=== PATIENT | male | born 1970 | race Caucasian/White ===

== ENCOUNTER 2018-11-02 10:27 | Observation (INO) | payer OTHER, SELFPAY ==
[2018-11-02] VITALS (18 sets, daily range): BP systolic 95–130; BP diastolic 63–89; PULSE 78–102; RESP 14–24; TEMP 36.4–38.4; O2SAT 91–98; BMI 28.8
--- NOTE | 2018-11-02 | PATH_ITS ---
[facility] Accession Number: [id number] . 01 Material submitted: . gallbladder - GALLBLADDER AND CONTENTS . 02 Diagnosis: Gallbladder And Contents, Cholecystectomy: Cholelithiasis. Markedly active chronic cholecystitis with transmural abscess (microscopic perforation). No evidence of neoplasm. I/11/04/2018 . 02 Electronically signed: . Joey Bolton MD, PhD, Pathologist NPI- [id number] . 01 Gross description: . Received in formalin, labeled gallbladder + contents, is an opened gallbladder (length-6.9 cm, diameter-3.6 cm) with anderson-horner smooth shiny serosa and a patent cystic duct. No lymph nodes are identified. The mucosa is brown-green, smooth and flat. The wall is up to 0.2 cm thick. No nodules, masses or lesions are identified. The contents are also submitted and consist of anderson-brown mucoid material containing multiple green gritty friable calculi (2.0 x 1.5 x 0.7 cm in aggregate). Section code: (A1) cystic duct resection margin and two serial sections from the body; (A2) two longitudinal sections from the fundus. ([id number]) /MRV . 02 Pathologist provided ICD-10: K80.60, K81.2 . 02 CPT . 513863 Performed at: 01 [facility] [address] [facility], [place], [place] [id number] MD Garrick Castellanos MD Phone: [phone] Performed at: 02 [facility] [address] [place], [place] [id number] MD Isha Silverman MD Phone: [phone]
--- NOTE | 2018-11-02 10:34 | ED.ABDPAIN ---
HPI - Abdominal Pain General Chief Complaint: Abdominal Pain Stated Complaint: stomach pain Time Seen by Provider: 11/02/18 10:28 Source: patient and family () Mode of arrival: ambulatory Limitations: no limitations History of Present Illness HPI narrative: This is a 48-year-old male comes to the emergency department with complaint of abdominal pain. Patient states it started last night. He states it started after he ate dinner. He states that is been pretty much constant. Movement does seem to make it worse particularly bending side to side. Lying flat does not take it away but it is not as uncomfortable. Patient states that does not radiate anywhere, does not go to his chest, back or lower abdomen. He describes it as being sort of epigastric and supraumbilical. Patient states he has thrown up 4 times overnight. He has not had fevers but felt a little chilled or clammy. He has had normal bowel movements. He has not had any black or blood in his bowel movements or in his vomit. He has had normal urination. He denies any skin changes. Patient denies any other past medical history, he does not take medications regularly, he has had surgery which included a Vega fundoplication for GERD about 15 years ago. He does drink alcohol, 2-4 drinks daily 5 days of 7 days. Denies tobacco, denies illicit. He was visiting [facility] and so they were not able to come to the emergency department last night. He tried Kerry-Edmond but has not tried any other OTC medications. Related Data Home Medications Medication Instructions Recorded Confirmed No Known Home Medications 11/02/18 11/02/18 Allergies Allergy/AdvReac Type Severity Reaction Status Date / Time No Known Drug Allergies Allergy Verified 11/02/18 15:14 Review of Systems Review of Systems ROS Unobtainable: All systems reviewed & are unremarkable except as noted in HPI and below Constitutional Reports chills, Denies fever(s), Denies lethargy and Denies weakness Cardiovascular Denies chest pain, Denies irregular heart rhythm, Denies lightheadedness, Denies palpitations, Denies dyspnea, Denies dyspnea on exertion and Denies orthopnea Respiratory Denies chest congestion, Denies cough, Denies dyspnea and Denies dyspnea on exertion Gastrointestinal Gastrointestinal: Reports abdominal pain, Denies melena, Denies hematochezia, Denies change in bowel habits, Denies change in stool character, Denies constipation, Denies diarrhea, Reports nausea, Reports vomiting (x4) and Denies hematemesis Genitourinary Denies hematuria, Denies flank pain, Denies urinary frequency, Denies urinary hesitancy, Denies urinary incontinence and Denies urinary urgency Musculoskeletal Denies back pain Integumentary/Breasts Denies rash and Denies unusual bruising Neurologic Denies weakness Endocrine Denies palpitations [facility] Surgical History History of Vega fundoplication (Chronic) Social History (Updated 11/02/18 @ 10:41 by Henrietta Streeter DO) Smoking Status: Never smoker alcohol intake: current substance use type: does not use Social History (Updated 11/02/18 @ 10:41 by Henrietta Streeter DO) household members: significant other and family Smoking Status: Never smoker alcohol intake: current substance use type: does not use Exam Narrative Exam Narrative: GENERAL: Alert and oriented x three, well-nourished, well-appearing male in moderate distress. HEENT: Head normocephalic, atraumatic, EOMI, pupils reactive, face symmetric, moist mucous membranes NECK: Supple, full range of motion CARDIOVASCULAR: Regular rate and rhythm without murmurs, rubs or gallops. RESPIRATORY: Breath sounds equal bilaterally, no wheezes rales or rhonchi. ABDOMEN: Soft, some mild diffuse tenderness, greater in right upper and left upper quadrant. Hypoactive bowel sounds all 4 quadrants. No guarding or rebound, rigidity, no mass. No rash, no skin changes. : No CVA tenderness EXTREMITIES: Normal range of motion, no clubbing or edema. Neurovascularly intact NEUROLOGICAL: Cranial nerves II through XII grossly intact. Moving all extremities SKIN: Warm, dry, no petechiae, no rashes or lesions. Initial Vital Signs Initial Vital Signs: Vital Signs Temperature 99.2 F 11/02/18 10:32 Pulse Rate 102 H 11/02/18 10:32 Respiratory Rate 18 11/02/18 10:32 Blood Pressure 130/89 11/02/18 10:32 Pulse Oximetry 96 11/02/18 10:32 Course Orders Ordered: ED Orders 11/02/18 10:34 US abdomen complete Stat 11/02/18 10:35 XR acute abdomen series Stat 11/02/18 10:41 Complete Blood Count AUTO DIFF Stat Comprehensive Metabolic Panel Stat Lipase Stat Troponin & CK Cardiac Panel Stat 11/02/18 14:22 Education, smoking cessation ONGOING Acetaminophen (Tylenol) 650 mg PO Q6HR PRN PRN Reason: As Needed for Fever/Mild Pain Docusate Sodium (Colace) 100 mg PO BID PRN PRN Reason: Constipation Hydromorphone HCl (Dilaudid) 0.5 mg IV Q4HR PRN PRN Reason: Pain, Moderate (4-6) Sodium Chloride (Normal Saline 0.9%) 1,000 mls @ 100 mls/hr IV CONT GERARDO Last Admin: 11/02/18 17:55 Dose: 100 mls/hr Naloxone HCl (Narcan) 0.2 mg IV Q2MIN PRN PRN Reason: Opiate Reversal Oxycodone/Acetaminophen (Percocet 5/325) 1 tab PO Q4HR PRN PRN Reason: Pain, Moderate (4-6) Discontinued Medications Acetaminophen (Tylenol) 325 mg PO NOW PRN PRN Reason: Pain, Mild (1-3) Bupivacaine HCl/Epinephrine Bitart (Sensorcaine 0.25% W/ Epi (Pf)) 30 ml INJ NOW ONE Stop: 11/02/18 16:14 Last Admin: 11/02/18 16:13 Dose: 20 ml Fentanyl (Sublimaze) 50 mcg IV Q5MIN PRN PRN Reason: Pain, Moderate (4-6) Hydromorphone HCl (Dilaudid) 0.5 mg IV Q4H PRN PRN Reason: Pain, Severe (7-10) Hydromorphone HCl (Dilaudid) 0.5 mg IV Q5MIN PRN PRN Reason: Pain, Moderate (4-6) Sodium Chloride (Normal Saline 0.9%) 1,000 mls @ 1,000 mls/hr IV BOLUS ONE Stop: 11/02/18 11:33 Last Infusion: 11/02/18 11:44 Dose: 0 mls/hr Admin: 11/02/18 10:44 Dose: 1,000 mls/hr Sodium Chloride (Normal Saline 0.9%) 1,000 mls @ 150 mls/hr IV BOLUS ONE Stop: 11/02/18 18:43 Last Infusion: 11/02/18 13:22 Dose: 150 mls/hr Infusion: 11/02/18 13:08 Dose: 150 mls/hr Admin: 11/02/18 12:27 Dose: 150 mls/hr Piperacillin/Tazobactam/Dextrose (Zosyn) 3.375 gm in 50 mls @ 100 mls/hr IV NOW ONE Stop: 11/02/18 12:45 Last Infusion: 11/02/18 13:08 Dose: 0 mls/hr Admin: 11/02/18 12:29 Dose: 100 mls/hr Lactated Ringer's (Lactated Ringers) 1,000 mls @ 100 mls/hr IV CONT GERARDO Last Admin: 11/02/18 15:17 Dose: 100 mls/hr Lactated Ringer's (Lactated Ringers) 1,000 mls @ 42 mls/hr IV CONT GERARDO Last Admin: 11/02/18 18:28 Dose: Not Given Acetaminophen (Ofirmev) 1,000 mg in 100 mls @ 400 mls/hr IV NOW ONE Stop: 11/02/18 16:53 Last Admin: 11/02/18 16:40 Dose: 400 mls/hr Ketorolac Tromethamine (Toradol) 30 mg IV NOW ONE Stop: 11/02/18 10:35 Last Admin: 11/02/18 10:44 Dose: 30 mg Metoclopramide HCl (Reglan) 10 mg IV NOW PRN PRN Reason: Nausea And Vomiting Morphine Sulfate (Morphine) 2 mg IV NOW ONE Stop: 11/02/18 12:07 Last Admin: 11/02/18 12:08 Dose: 2 mg Ondansetron HCl (Zofran) 4 mg IV NOW ONE Stop: 11/02/18 10:35 Last Admin: 11/02/18 10:44 Dose: 4 mg Ondansetron HCl (Zofran) 4 mg IV Q4HR PRN PRN Reason: Nausea And Vomiting Ondansetron HCl (Zofran) 4 mg IV NOW PRN PRN Reason: Nausea And Vomiting Oxycodone HCl (Percolone) 5 mg PO Q30MIN PRN PRN Reason: Mild or moderate pain Pantoprazole Sodium (Protonix) 40 mg IV NOW ONE Stop: 11/02/18 10:35 Last Admin: 11/02/18 10:44 Dose: 40 mg Vital Signs - 8 hr 11/02/18 11:28 11/02/18 12:32 11/02/18 15:22 Temperature 101.1 F H Pulse Rate 78 97 H 90 Respiratory Rate 16 16 24 Blood Pressure 109/69 Blood Pressure [Left Arm] 119/82 110/79 Pulse Oximetry 98 97 97 11/02/18 16:58 11/02/18 17:03 11/02/18 17:08 Temperature 98.1 F Pulse Rate 99 H 96 H 96 H Respiratory Rate 18 22 16 Blood Pressure 107/80 103/75 105/76 Blood Pressure [Left Arm] Pulse Oximetry 92 94 94 11/02/18 17:13 11/02/18 17:18 11/02/18 17:23 Temperature Pulse Rate 93 H 90 91 H Respiratory Rate 14 17 19 Blood Pressure 99/70 95/67 95/70 Blood Pressure [Left Arm] Pulse Oximetry 94 93 94 11/02/18 17:27 11/02/18 17:33 11/02/18 17:38 Temperature 99.4 F Pulse Rate 90 93 H 93 H Respiratory Rate 19 15 22 Blood Pressure 102/72 97/64 101/72 Blood Pressure [Left Arm] Pulse Oximetry 93 94 92 11/02/18 17:50 Temperature 98.1 F Pulse Rate 87 Respiratory Rate 18 Blood Pressure 110/67 Blood Pressure [Left Arm] Pulse Oximetry 92 MDM - Abdominal Pain Lab Data Attestation: I reviewed the patient's lab results. Result diagrams: 11/02/18 10:41 11/02/18 10:41 Lab Results 11/02/18 11/02/18 Range/Units 10:41 10:41 WBC 15.9 H (4.5-11.0) X10^3/uL RBC 4.69 (4.5-5.9) X10^6/uL Hgb 15.1 (13.5-17.5) g/dL Hct 42.5 (41-53) % MCV 90.7 (80-100) fL MCH 32.1 (26-34) PG MCHC 35.4 (30-36) % RDW 12.9 (11.6-14.8) % Plt Count 184 (150-400) X10^3/uL Neut % (Auto) 90.6 H (50-75) % Lymph % (Auto) 2.7 L (25-40) % Pen[place]ton % (Auto) 6.5 (3-14) % Eos % (Auto) 0.0 L (2-4) % Baso % (Auto) 0.2 (0-2) % Neut # (Auto) 04127 H (6672-3967) /uL Lymph # (Auto) 400 L (6770-3555) /uL Pennington # (Auto) 1000 H (0-900) /uL Eos # (Auto) 0 (0-450) /uL Baso # (Auto) 0 (0-100) /uL Sodium 140 (137-145) mmol/L Potassium 4.0 (3.4-5.1) mmol/L Chloride 102 (98-107) mmol/L Carbon Dioxide 25 (22-32) mmol/L BUN 16 (9-20) mg/dL Creatinine 0.70 (0.66-1.25) mg/dL Estimated GFR > 60.0 (>60) mL/min BUN/Creatinine Ratio 22.9 H (6-22) Glucose 145 H (70-100) mg/dL Calcium 9.5 (8.4-10.2) mg/dL Total Bilirubin 1.0 (0.2-1.3) mg/dL AST 31 (17-59) IU/L ALT 33 (21-72) IU/L Alkaline Phosphatase 63 (38-126) U/L Total Creatine Kinase 178 H (55-170) U/L CK-MB (CK-2) 1.03 (<2.37) ng/mL CK-MB (CK-2) Rel Index 0.6 L (1.5-5.0) % Troponin I < 0.012 (0.01-0.034) ng/mL Total Protein 8.0 (6.3-8.2) g/dL Albumin 4.8 (3.5-5.0) g/dL Globulin 3.2 (1.7-4.1) g/dL Albumin/Globulin Ratio 1.5 (1.0-2.8) Lipase 42 (23-300) U/L Imaging Data Abdominal x-ray: Radiologist's impression: Pancho De Los Santos 48 M [address] [address] XRay Report Signed Patient: Pancho De Los Santos#: [id number] : 1970Acct:[id number] Age/Sex: 48 / MDate of Service: 11/02/18 Loc: ED Accession Number: [id number] Procedure: XR acute abdomen series Ordering Provider: Henrietta Streeter D.O. PROCEDURE: XR ACUTE ABDOMEN SERIES INDICATIONS: epigastric/abdominal pain TECHNIQUE: One view chest and two views of the abdomen were acquired. COMPARISON: None. FINDINGS: Surgical changes and devices: None. Chest: Lungs are clear. Heart size is normal. No pleural effusions. No pneumoperitoneum. Abdomen: Bowel gas pattern is normal. Mild fecal stasis in the colon is seen. No suspicious calcifications. Visualized solid organ contours appear normal. Bones: No suspicious bony lesions. IMPRESSION: No evidence of bowel structure or gross free air. No acute cardiopulmonary pathology. Dictated by: Antony Fox M.D. on 11/02/2018 at 11:23 Approved by: Antony Fox M.D. on 11/02/2018 at 11:24 US - abdomen: Radiologist's impression: [place] [address] Ultrasound Report Signed Patient: Pancho De Los Santos [facility]#: [id number] : 1970Acct:[id number] Age/Sex: 48 / MDate of Service: 11/02/18 Loc: ED Accession Number: [id number] Procedure: US abdomen complete Ordering Provider: Henrietta Streeter D.O. PROCEDURE: US ABDOMEN COMPLETE INDICATIONS: EPIGASTRIC/SUPRAUMBILICAL PAIN TECHNIQUE: Real-time scanning was performed of the abdominal and retroperitoneal organs, with image documentation. COMPARISON: None. FINDINGS: Liver: Liver is mildly enlarged in size and measures 22.2 cm in length. Normal liver parenchymal echotexture is seen. Gallbladder: Multiple stones are seen in dependent portion of gallbladder lumen. Borderline gallbladder wall thickening is seen measures 3.5 mm in thickness. No pericholecystic fluid. No sonographic Anne's sign. Biliary ducts: Intrahepatic bile ducts are non-dilated. Extrahepatic bile duct caliber measures 5.2 mm. Normal is 6-7 mm or less in diameter, or 10 mm or less post-cholecystectomy. Pancreas: Visualized portions of the pancreas are sonographically normal. Spleen: Spleen is enlarged and measures 14 cm in length. No discrete splenic lesion is seen. Kidneys: Kidneys are normal in size and echotexture. Right kidney measures 11.1 cm long; left kidney measures 13.1 cm long. No hydronephrosis or nephrolithiasis. No solid masses. Aorta: Visualized aorta is normal in caliber at less than 3 cm. Iliacs: Proximal common iliac arteries are normal in caliber at less than 2.5 cm. IVC: Intrahepatic inferior vena cava is patent. Miscellaneous: No free abdominal fluid. No gross abnormality is seen in supraumbilical area. IMPRESSION: 1. Hepatosplenomegaly. No discrete hepatic or splenic lesion. 2. Cholelithiasis. No sonographic evidence of acute cholecystitis. No biliary ductal dilatation. Dictated by: Antony Fox M.D. on 11/02/2018 at 11:14 Approved by: Antony Fox M.D. on 11/02/2018 at 11:16 ECG Data Attestation: I personally reviewed and interpreted this ECG as follows: Interpretation: Sinus tachycardia nose ST elevation or depression. Rate of 103 P are 172 QRS of 108 QTC of 422. Q-wave in 3 and AVF. MDM Narrative Medical decision making narrative: Recheck after medications and patient is feeling improved with a pain a 5/10. He defers any additional pain medications. Patient has gallstones, thickening of the gallbladder wall. No sludge or fluid but patient is tender on exam he also has an elevated white count. He has been afebrile. Patient's LFTs, creatinine and electrolytes are normal. EKG and troponin were obtained, no acute findings other than some sinus tachycardia. I spoke with Dr. Holden, who accepts asked for the patient to be admitted under her name. Asked that we start antibiotics. Discussed a plan for Zosyn. Discussed with patient he is aware of the plan. Discharge Plan Departure Patient Disposition: Admitted as Observation Clinical Impression: Cholelithiasis, Abdominal pain, Acute cholecystitis Discharge Date/Time: 11/02/18 13:21 Interventions: ED Discharge Assessment Last Done: 11/02/18 13:20 Admit Date/Time: 11/02/18 12:32 Admit Provider: Vidhya Holden
--- NOTE | 2018-11-02 10:40 | ED_ITS ---
HPI - Abdominal Pain General Chief Complaint: Abdominal Pain Stated Complaint: stomach pain Time Seen by Provider: 11/02/18 10:28 Source: patient and family () Mode of arrival: ambulatory Limitations: no limitations History of Present Illness HPI narrative: This is a 48-year-old male comes to the emergency department with complaint of abdominal pain. Patient states it started last night. He states it started after he ate dinner. He states that is been pretty much constant. Movement does seem to make it worse particularly bending side to side. Lying flat does not take it away but it is not as uncomfortable. Patient states that does not radiate anywhere, does not go to his chest, back or lower abdomen. He describes it as being sort of epigastric and supraumbilical. Patient states he has thrown up 4 times overnight. He has not had fevers but felt a little chilled or clammy. He has had normal bowel movements. He has not had any black or blood in his bowel movements or in his vomit. He has had normal urination. He denies any skin changes. Patient denies any other past medical history, he does not take medications regularly, he has had surgery which included a Vega fundoplication for GERD about 15 years ago. He does drink alcohol, 2-4 drinks daily 5 days of 7 days. Denies tobacco, denies illicit. He was visiting [facility] and so they were not able to come to the emergency department last night. He tried Kerry-Pana but has not tried any other OTC medications. Related Data Home Medications Medication Instructions Recorded Confirmed No Known Home Medications 11/02/18 11/02/18 Allergies Allergy/AdvReac Type Severity Reaction Status Date / Time No Known Drug Allergies Allergy Verified 11/02/18 15:14 Review of Systems Review of Systems ROS Unobtainable: All systems reviewed & are unremarkable except as noted in HPI and below Constitutional Reports chills, Denies fever(s), Denies lethargy and Denies weakness Cardiovascular Denies chest pain, Denies irregular heart rhythm, Denies lightheadedness, Denies palpitations, Denies dyspnea, Denies dyspnea on exertion and Denies orthopnea Respiratory Denies chest congestion, Denies cough, Denies dyspnea and Denies dyspnea on exertion Gastrointestinal Gastrointestinal: Reports abdominal pain, Denies melena, Denies hematochezia, Denies change in bowel habits, Denies change in stool character, Denies consti pation, Denies diarrhea, Reports nausea, Reports vomiting (x4) and Denies hematemesis Genitourinary Denies hematuria, Denies flank pain, Denies urinary frequency, Denies urinary hesitancy, Denies urinary incontinence and Denies urinary urgency Musculoskeletal Denies back pain Integumentary/Breasts Denies rash and Denies unusual bruising Neurologic Denies weakness Endocrine Denies palpitations [facility] Surgical History History of Vega fundoplication (Chronic) Social History (Updated 11/02/18 @ 10:41 by Henrietta Streeter DO) Smoking Status: Never smoker alcohol intake: current substance use type: does not use Social History (Updated 11/02/18 @ 10:41 by Henrietta Streeter DO) household members: significant other and family Smoking Status: Never smoker alcohol intake: current substance use type: does not use Exam Narrative Exam Narrative: GENERAL: Alert and oriented x three, well-nourished, well- appearing male in moderate distress. HEENT: Head normocephalic, atraumatic, EOMI, pupils reactive, face symmetric, moist mucous membranes NECK: Supple, full range of motion CARDIOVASCULAR: Regular rate and rhythm without murmurs, rubs or gallops. RESPIRATORY: Breath sounds equal bilaterally, no wheezes rales or rhonchi. ABDOMEN: Soft, some mild diffuse tenderness, greater in right upper and left upper quadrant. Hypoactive bowel sounds all 4 quadrants. No guarding or rebound, rigidity, no mass. No rash, no skin changes. : No CVA tenderness EXTREMITIES: Normal range of motion, no clubbing or edema. Neurovascularly intact NEUROLOGICAL: Cranial nerves II through XII grossly intact. Moving all extremities SKIN: Warm, dry, no petechiae, no rashes or lesions. Initial Vital Signs Initial Vital Signs: Vital Signs Temperature 99.2 F 11/02/18 10:32 Pulse Rate 102 H 11/02/18 10:32 Respiratory Rate 18 11/02/18 10:32 Blood Pressure 130/89 11/02/18 10:32 Pulse Oximetry 96 11/02/18 10:32 Course Orders Ordered: ED Orders 11/02/18 10:34 US abdomen complete Stat 11/02/18 10:35 XR acute abdomen series Stat 11/02/18 10:41 Complete Blood Count AUTO DIFF Stat Comprehensive Metabolic Panel Stat Lipase Stat Troponin & CK Cardiac Panel Stat 11/02/18 14:22 Education, smoking cessation ONGOING Acetaminophen (Tylenol) 650 mg PO Q6HR PRN PRN Reason: As Needed for Fever/Mild Pain Docusate Sodium (Colace) 100 mg PO BID PRN PRN Reason: Constipation Hydromorphone HCl (Dilaudid) 0.5 mg IV Q4HR PRN PRN Reason: Pain, Moderate (4-6) Sodium Chloride (Normal Saline 0.9%) 1,000 mls @ 100 mls/hr IV CONT GERARDO Last Admin: 11/02/18 17:55 Dose: 100 mls/hr Naloxone HCl (Narcan) 0.2 mg IV Q2MIN PRN PRN Reason: Opiate Reversal Oxycodone/Acetaminophen (Percocet 5/325) 1 tab PO Q4HR PRN PRN Reason: Pain, Moderate (4-6) Discontinued Medications Acetaminophen (Tylenol) 325 mg PO NOW PRN PRN Reason: Pain, Mild (1-3) Bupivacaine HCl/Epinephrine Bitart (Sensorcaine 0.25% W/ Epi (Pf)) 30 ml INJ NOW ONE Stop: 11/02/18 16:14 Last Admin: 11/02/18 16:13 Dose: 20 ml Fentanyl (Sublimaze) 50 mcg IV Q5MIN PRN PRN Reason: Pain, Moderate (4-6) Hydromorphone HCl (Dilaudid) 0.5 mg IV Q4H PRN PRN Reason: Pain, Severe (7-10) Hydromorphone HCl (Dilaudid) 0.5 mg IV Q5MIN PRN PRN Reason: Pain, Moderate (4-6) Sodium Chloride (Normal Saline 0.9%) 1,000 mls @ 1,000 mls/hr IV BOLUS ONE Stop: 11/02/18 11:33 Last Infusion: 11/02/18 11:44 Dose: 0 mls/hr Admin: 11/02/18 10:44 Dose: 1,000 mls/hr Sodium Chloride (Normal Saline 0.9%) 1,000 mls @ 150 mls/hr IV BOLUS ONE Stop: 11/02/18 18:43 Last Infusion: 11/02/18 13:22 Dose: 150 mls/hr Infusion: 11/02/18 13:08 Dose: 150 mls/hr Admin: 11/02/18 12:27 Dose: 150 mls/hr Piperacillin/Tazobactam/Dextrose (Zosyn) 3.375 gm in 50 mls @ 100 mls/hr IV NOW ONE Stop: 11/02/18 12:45 Last Infusion: 11/02/18 13:08 Dose: 0 mls/hr Admin: 11/02/18 12:29 Dose: 100 mls/hr Lactated Ringer's (Lactated Ringers) 1,000 mls @ 100 mls/hr IV CONT GERARDO Last Admin: 11/02/18 15:17 Dose: 100 mls/hr Lactated Ringer's (Lactated Ringers) 1,000 mls @ 42 mls/hr IV CONT GERARDO Last Admin: 11/02/18 18:28 Dose: Not Given Acetaminophen (Ofirmev) 1,000 mg in 100 mls @ 400 mls/hr IV NOW ONE Stop: 11/02/18 16:53 Last Admin: 11/02/18 16:40 Dose: 400 mls/hr Ketorolac Tromethamine (Toradol) 30 mg IV NOW ONE Stop: 11/02/18 10:35 Last Admin: 11/02/18 10:44 Dose: 30 mg Metoclopramide HCl (Reglan) 10 mg IV NOW PRN PRN Reason: Nausea And Vomiting Morphine Sulfate (Morphine) 2 mg IV NOW ONE Stop: 11/02/18 12:07 Last Admin: 11/02/18 12:08 Dose: 2 mg Ondansetron HCl (Zofran) 4 mg IV NOW ONE Stop: 11/02/18 10:35 Last Admin: 11/02/18 10:44 Dose: 4 mg Ondansetron HCl (Zofran) 4 mg IV Q4HR PRN PRN Reason: Nausea And Vomiting Ondansetron HCl (Zofran) 4 mg IV NOW PRN PRN Reason: Nausea And Vomiting Oxycodone HCl (Percolone) 5 mg PO Q30MIN PRN PRN Reason: Mild or moderate pain Pantoprazole Sodium (Protonix) 40 mg IV NOW ONE Stop: 11/02/18 10:35 Last Admin: 11/02/18 10:44 Dose: 40 mg Vital Signs - 8 hr 11/02/18 11:28 11/02/18 12:32 11/02/18 15:22 Temperature 101.1 F H Pulse Rate 78 97 H 90 Respiratory Rate 16 16 24 Blood Pressure 109/69 Blood Pressure [Left Arm] 119/82 110/79 Pulse Oximetry 98 97 97 11/02/18 16:58 11/02/18 17:03 11/02/18 17:08 Temperature 98.1 F Pulse Rate 99 H 96 H 96 H Respiratory Rate 18 22 16 Blood Pressure 107/80 103/75 105/76 Blood Pressure [Left Arm] Pulse Oximetry 92 94 94 11/02/18 17:13 11/02/18 17:18 11/02/18 17:23 Temperature Pulse Rate 93 H 90 91 H Respiratory Rate 14 17 19 Blood Pressure 99/70 95/67 95/70 Blood Pressure [Left Arm] Pulse Oximetry 94 93 94 11/02/18 17:27 11/02/18 17:33 11/02/18 17:38 Temperature 99.4 F Pulse Rate 90 93 H 93 H Respiratory Rate 19 15 22 Blood Pressure 102/72 97/64 101/72 Blood Pressure [Left Arm] Pulse Oximetry 93 94 92 11/02/18 17:50 Temperature 98.1 F Pulse Rate 87 Respiratory Rate 18 Blood Pressure 110/67 Blood Pressure [Left Arm] Pulse Oximetry 92 MDM - Abdominal Pain Lab Data Attestation: I reviewed the patient's lab results. Result diagrams: 11/02/18 10:41 11/02/18 10:41 Lab Results 11/02/18 11/02/18 Range/Units 10:41 10:41 WBC 15.9 H (4.5-11.0) X10^3/uL RBC 4.69 (4.5-5.9) X10^6/uL Hgb 15.1 (13.5-17.5) g/dL Hct 42.5 (41-53) % MCV 90.7 (80-100) fL MCH 32.1 (26-34) PG MCHC 35.4 (30-36) % RDW 12.9 (11.6-14.8) % Plt Count 184 (150-400) X10^3/uL Neut % (Auto) 90.6 H (50-75) % Lymph % (Auto) 2.7 L (25-40) % [place] % (Auto) 6.5 (3-14) % Eos % (Auto) 0.0 L (2-4) % Baso % (Auto) 0.2 (0-2) % Neut # (Auto) 31250 H (6018-8941) /uL Lymph # (Auto) 400 L (7975-8643) /uL [place] # (Auto) 1000 H (0-900) /uL Eos # (Auto) 0 (0-450) /uL Baso # (Auto) 0 (0-100) /uL Sodium 140 (137-145) mmol/L Potassium 4.0 (3.4-5.1) mmol/L Chloride 102 (98-107) mmol/L Carbon Dioxide 25 (22-32) mmol/L BUN 16 (9-20) mg/dL Creatinine 0.70 (0.66-1.25) mg/dL Estimated GFR > 60.0 (>60) mL/min BUN/Creatinine Ratio 22.9 H (6-22) Glucose 145 H (70-100) mg/dL Calcium 9.5 (8.4-10.2) mg/dL Total Bilirubin 1.0 (0.2-1.3) mg/dL AST 31 (17-59) IU/L ALT 33 (21-72) IU/L Alkaline Phosphatase 63 (38-126) U/L Total Creatine Kinase 178 H (55-170) U/L CK-MB (CK-2) 1.03 (<2.37) ng/mL CK-MB (CK-2) Rel Index 0.6 L (1.5-5.0) % Troponin I < 0.012 (0.01-0.034) ng/mL Total Protein 8.0 (6.3-8.2) g/dL Albumin 4.8 (3.5-5.0) g/dL Globulin 3.2 (1.7-4.1) g/dL Albumin/Globulin Ratio 1.5 (1.0-2.8) Lipase 42 (23-300) U/L Imaging Data Abdominal x-ray: Radiologist's impression: Pancho De Los Santos [address] [address] XRay Report Signed Patient: Pancho De Los Santos [facility]#: [id number] : 1970Acct:[id number] Age/Sex: 48 / MDate of Service: 11/02/18 Loc: ED Accession Number: [id number] Procedure: XR acute abdomen series Ordering Provider: Henrietta Streeter D.O. PROCEDURE: XR ACUTE ABDOMEN SERIES INDICATIONS: epigastric/abdominal pain TECHNIQUE: One view chest and two views of the abdomen were acquired. COMPARISON: None. FINDINGS: Surgical changes and devices: None. Chest: Lungs are clear. Heart size is normal. No pleural effusions. No pneumoperitoneum. Abdomen: Bowel gas pattern is normal. Mild fecal stasis in the colon is seen. No suspicious calcifications. Visualized solid organ contours appear normal. Bones: No suspicious bony lesions. IMPRESSION: No evidence of bowel structure or gross free air. No acute cardiopulmonary pathology. Dictated by: Antony Fox M.D. on 11/02/2018 at 11:23 Approved by: Antony Fox M.D. on 11/02/2018 at 11:24 US - abdomen: Radiologist's impression: [place] [address] Ultrasound Report Signed Patient: Pancho De Los Santos [facility]#: [id number] : 1970Acct:[id number] Age/Sex: 48 / MDate of Service: 11/02/18 Loc: ED Accession Number: [id number] Procedure: US abdomen complete Ordering Provider: Henrietta Streeter D.O. PROCEDURE: US ABDOMEN COMPLETE INDICATIONS: EPIGASTRIC/SUPRAUMBILICAL PAIN TECHNIQUE: Real-time scanning was performed of the abdominal and retroperitoneal organs, with image documentation. COMPARISON: None. FINDINGS: Liver: Liver is mildly enlarged in size and measures 22.2 cm in length. Normal liver parenchymal echotexture is seen. Gallbladder: Multiple stones are seen in dependent portion of gallbladder lumen. Borderline gallbladder wall thickening is seen measures 3.5 mm in thickness. No pericholecystic fluid. No sonographic Anne's sign. Biliary ducts: Intrahepatic bile ducts are non-dilated. Extrahepatic bile duct caliber measures 5.2 mm. Normal is 6-7 mm or less in diameter, or 10 mm or less post-cholecystectomy. Pancreas: Visualized portions of the pancreas are sonographically normal. Spleen: Spleen is enlarged and measures 14 cm in length. No discrete splenic lesion is seen. Kidneys: Kidneys are normal in size and echotexture. Right kidney measures 11.1 cm long; left kidney measures 13.1 cm long. No hydronephrosis or nephrolithiasis. No solid masses. Aorta: Visualized aorta is normal in caliber at less than 3 cm. Iliacs: Proximal common iliac arteries are normal in caliber at less than 2.5 cm. IVC: Intrahepatic inferior vena cava is patent. Miscellaneous: No free abdominal fluid. No gross abnormality is seen in supraumbilical area. IMPRESSION: 1. Hepatosplenomegaly. No discrete hepatic or splenic lesion. 2. Cholelithiasis. No sonographic evidence of acute cholecystitis. No biliary ductal dilatation. Dictated by: Antony Fox M.D. on 11/02/2018 at 11:14 Approved by: Antony Fox M.D. on 11/02/2018 at 11:16 ECG Data Attestation: I personally reviewed and interpreted this ECG as follows: Interpretation: Sinus tachycardia nose ST elevation or depression. Rate of 103 P are 172 QRS of 108 QTC of 422. Q-wave in 3 and AVF. MDM Narrative Medical decision making narrative: Recheck after medications and patient is feeling improved with a pain a 5/10. He defers any additional pain medications. Patient has gallstones, thickening of the gallbladder wall. No sludge or fluid but patient is tender on exam he also has an elevated white count. He has been afebrile. Patient's LFTs, creatinine and electrolytes are normal. EKG and troponin were obtained, no acute findings other than some sinus tachycardia. I spoke with Dr. Holden, who accepts asked for the patient to be admitted under her name. Asked that we start antibiotics. Discussed a plan for Zosyn. Discussed with patient he is aware of the plan. Discharge Plan Departure Patient Disposition: Admitted as Observation Clinical Impression: Cholelithiasis, Abdominal pain, Acute cholecystitis Discharge Date/Time: 11/02/18 13:21 Interventions: ED Discharge Assessment Last Done: 11/02/18 13:20 Admit Date/Time: 11/02/18 12:32 Admit Provider: Vidhya Holden
[2018-11-02] MEDS: KETOROLAC 60 MG/2 ML VIAL 30 MG IV (10:44)
[2018-11-02] MEDS: ONDANSETRON 4 MG/2 ML INJ IV (10:44)
[2018-11-02] MEDS: SODIUM CHLORIDE 0.9% 1,000 ML 1000 ML IV (10:44)
[2018-11-02] MEDS: PANTOPRAZOLE 40 MG VIAL IV (10:44)
[2018-11-02 10:48] LABS: Add Manual Diff / Slide Review NO; Basophils Absolute Auto 0 /uL (0-100); Basophils Percent Auto 0.2 % (0-2); Eosinophils Absolute Auto 0 /uL (0-450); Hematocrit 42.5 % (41-53); Hemoglobin 15.1 g/dL (13.5-17.5); Lymphocytes Absolute Auto 400 /uL (1100-4500); Lymphocytes Percent Auto 2.7 % (25-40); Mean Corpuscular HGB Conc 35.4 % (30-36); Mean Corpuscular Hemoglobin 32.1 PG (26-34); Mean Corpuscular Volume 90.7 fL (80-100); Monocytes Absolute Auto 1000 /uL (0-900); Monocytes Percent Auto 6.5 % (3-14); Neutrophils Absolute Auto 14400 /uL (1500-7000); Neutrophils Percent Auto 90.6 % (50-75); Platelet Count 184 X10^3/uL (150-400); Red Blood Cell Count 4.69 X10^6/uL (4.5-5.9); Red Cell Distribution Width 12.9 % (11.6-14.8); White Blood Cell Count 15.9 X10^3/uL (4.5-11.0)
[2018-11-02 10:59] LABS: Alanine Aminotransferase 33 IU/L (21-72); Albumin 4.8 g/dL (3.5-5.0); Albumin Globulin Ratio 1.5 (1.0-2.8); Alkaline Phosphatase 63 U/L (38-126); Aspartate Aminotransferase 31 IU/L (17-59); BUN Creatinine Ratio 22.9 (6-22); Blood Urea Nitrogen 16 mg/dL (9-20); Calcium 9.5 mg/dL (8.4-10.2); Carbon Dioxide 25 mmol/L (22-32); Chloride 102 mmol/L (98-107); Creatine Kinase 178 U/L (55-170); Estimated Glomerular Filt Rate > 60.0 mL/min (>60); Globulin 3.2 g/dL (1.7-4.1); Glucose 145 mg/dL (70-100); Lipase 42 U/L (23-300); Sodium 140 mmol/L (137-145)
[2018-11-02 11:10] LABS: Troponin I < 0.012 ng/mL (0.01-0.034)
[2018-11-02 11:15] LABS: CKMB % Relative Index 0.6 % (1.5-5.0); Creatine Kinase MB 1.03 ng/mL (<2.37); HEMOLYSIS 27 (0-50)
[2018-11-02] MEDS: MORPHINE 2 MG/ML INJ IV (12:08)
[2018-11-02] MEDS: SODIUM CHLORIDE 0.9% 1,000 ML 150 ML IV (12:27)
[2018-11-02] MEDS: PIPERACILLIN-TAZO 3.375 GM/50 ML FROZ.PIGGY IV (12:29)
--- NOTE | 2018-11-02 14:26 | PM.HP.1 ---
History of Present Illness Date Patient Seen: 11/02/18 Time Patient Seen: 14:26 Chief complaint: stomach pain Narrative: 48yo M with progressing RUQ/ ALTA pain since yesterday evening. It wors[place]. He has never had similar episodes but has occasionally had mild RUQ pain after eating. US shows gallstones and wall thickening, normal LFTs, mild leukocytosis to 15. No active medical issues, only abd surgery was a lap possibly Vega for GERD. Patient History Surgical History History of Vega fundoplication (Chronic) Social History (Updated 11/02/18 @ 10:41 by Henrietta Streeter DO) Smoking Status: Never smoker alcohol intake: current substance use type: does not use Family & Social History Safety & Behavioral: Feels Safe in Current Yes Environment Been Physically Hurt or No Threatened By a Person Tobacco & Substance use: Smoking Status Never smoker alcohol intake current alcohol intake frequency a few times a week Substance Use Type does not use Meds Home Medications Medication Instructions Recorded Confirmed Type No Known Home Medications 11/02/18 11/02/18 History Allergies Allergy/AdvReac Type Severity Reaction Status Date / Time No Known Drug Allergies Allergy Verified 11/02/18 10:32 Review of Systems Constitutional Constitutional: Reports as per HPI Exam Vital Signs (past 8 hours): - 11/02/18 10:32 11/02/18 11:28 11/02/18 12:32 Temperature 99.2 F Pulse Rate 102 H 78 97 H Respiratory Rate 18 16 16 Blood Pressure 130/89 Blood Pressure [Left Arm] 119/82 110/79 Pulse Oximetry 96 98 97 Oxygen Delivery Method Room Air Narrative Exam Narrative: AAO, NAD, overweight male EOMI, MMM, no scleral icterus unlabored RA soft, nd, ttp RUQ/ ALTA MAEW visible skin dry and intact Objective Imaging US - abdomen: Radiologist's impression: - cholelithiasis - gallbladder wall thickening Labs Result Diagrams: 11/02/18 10:41 11/02/18 10:41 Labs: Laboratory Results - last 24 hr 11/02/18 11/02/18 10:41 10:41 WBC 15.9 H RBC 4.69 Hgb 15.1 Hct 42.5 MCV 90.7 MCH 32.1 MCHC 35.4 RDW 12.9 Plt Count 184 Neut % (Auto) 90.6 H Lymph % (Auto) 2.7 L [place] % (Auto) 6.5 Eos % (Auto) 0.0 L Baso % (Auto) 0.2 Neut # (Auto) 19679 H Lymph # (Auto) 400 L [place] # (Auto) 1000 H Eos # (Auto) 0 Baso # (Auto) 0 Sodium 140 Potassium 4.0 Chloride 102 Carbon Dioxide 25 BUN 16 Creatinine 0.70 Estimated GFR > 60.0 BUN/Creatinine Ratio 22.9 H Glucose 145 H Calcium 9.5 Total Bilirubin 1.0 AST 31 ALT 33 Alkaline Phosphatase 63 Total Creatine Kinase 178 H CK-MB (CK-2) 1.03 CK-MB (CK-2) Rel Index 0.6 L Troponin I < 0.012 Total Protein 8.0 Albumin 4.8 Globulin 3.2 Albumin/Globulin Ratio 1.5 Lipase 42 Assessment & Plan Assessment & Plan narrative: - plan for lap kaylee --> all R/B/A discussed and pt wishes to proceed - IV abx - NPO; has not eaten today - prn pain and nausea meds
[2018-11-02] MEDS: LACTATED RINGERS 1,000 ML 100 ML IV (15:17)
--- NOTE | 2018-11-02 15:58 | PC.NURSE ---
Addendum entered by Mare Nash R.N. 11/02/18 21:18: Pancho now awake, reporting increased pain to abdomen 6/10 on pain scale. Denies nausea. Medicated with 1 tab Percocet & 1 tab reg tylenol, he is eating chicken noodle soup, crackers provided. Encouraged to eat slow and stop & call staff if he has increased pain or nausea. Lap sites w/steri-strips CDI. Abdomen soft, tender. Post-op teaching explained about splinting abdomen when coughs/sneeze/laughs. He is visiting with girlfriend at bedside, instructed to call staff for any concerns/needs, he agrees to this plan. Addendum entered by Mare Nash R.N. 11/02/18 18:30: Patient back to rm 218, awake, drowsy & staring up at ceiling but oriented x 3 and situation. Speech clear. VS stable. Encouraged deep breathing, RA oxygen 92-94% on continuous pulse ox. Lap sites x 5 to abdomen are CDI. CMS intact, wearing bilateral calf SCD's.Patient denies any pain or nausea, denies any needs/concerns at this time. IV to L anterior forearm flushing & infusing with no difficulty, NS infusing at 100 ml/hour. Original Note: At 1510 patient taken to surgery? as bed gone from room. When this nurse went in to do patient check he was already gone.
--- NOTE | 2018-11-02 16:05 | SUR.OPER ---
Supine on padded OR bed, head on pillow, safety belt at thigh, left arm padded and tucked at side. Right arm secured on padded arm oard <90 degrees abduction. Legs uncrossed. Padded footboard in place. Tape over blanket to secure lower legs.
[2018-11-02] MEDS: BUPIVACAINE 0.25% W/ EPI 30 ML VIAL INJ (16:13)
[2018-11-02] MEDS: ACETAMINOPHEN IV 1,000 MG/100 ML VIAL 400 MG IV (16:40)
--- NOTE | 2018-11-02 16:58 | P.OP_ITS ---
Operative Date/Time/Diagnoses Date of procedure: 11/02/18 Time of procedure: 16:57 Pre-op diagnosis: Cholecystitis Post-op diagnosis: same Procedure & Clinicians Procedure: Laparoscopic Cholecystectomy Same procedure as scheduled: Yes Indications: 48yo M with acute cholecystitis. Plan for surgical removal. All risks, benefits, and alternatives discussed and patient wishes to proceed. Surgeon: Vidhya Tabler Click Yes if Unassisted: Yes Anesthesia Type: General Operative Notes Findings: acutely inflamed gallbladder Closure Type: primary Specimen(s): other (gallbladder) Procedure in detail: The patient was taken to the operating room and placed on operating table in supine position. The abdomen was prepped and draped in sterile fashion and a time out is performed with the team present. Local anesthesia was used to infiltrate each site prior to incision. Using a 15- blade scalpel, a small 5 mm incision was made just to the right of the umbilicus. Using a 5 mm Optiview camera port, the laparoscope was inserted into the abdomen. Once confirmed to be within the peritoneal cavity, the abdomen was insufflated with air. Initial diagnostic laparoscopy showed no injury from initial trocar placement. Three secondary trocars were then placed in the following locations: a 5mm trocar was then placed in the right lateral subcostal margin, a 5mm trocar in the right midclavicular line, and an 11 mm trocar was placed in the midline in the midepigastric area. A blunt grasper was then used to retract the fundus of the gallbladder up over the dome of the liver. The liver was somewhat fatty as was the omentum so exposure was difficult. The gallbladder was acutely inflamed and grasping the wall caused a perforation with stone and bile spillage. A second blunt grasper was used to retract the infundibulum caudally. Using blunt dissection and electrocautery, the cystic duct and cystic artery were identified. These were circumferentially cleaned distally and proximally. The critical view was seen. Once adequate length was obtained, the cystic artery was doubly clipped proximally and singly clipped distally and then transected using scissors. The cystic duct was then clipped triply distally and once proximally. The clips were noted to completely traverse their respective structures with no evidence of bile leakage or bleeding. The remaining peritoneal attachments of the gallbladder and the liver bed were taken down using electrocautery. Once free, the gallbladder was placed into an EndoCatch retrieval bag and removed through the 11 mm port. The gallbladder was then passed off as a specimen. The right upper quadrant was suctioned free of any free fluid and hemostasis was ensured. The 11mm port site fascia was reapproximated using an EndoClose device and an 0-vicryl suture. The remainder of the local anesthesia was used to provide local analgesia over each of the port sites. The secondary trocars were removed under direct vision noting no bleeding. The abdomen was allowed to desufflate fully. The final trocar was removed. The skin incisions were then reapproximated using 4-0 Monocryl in an interrupted subcuticular fashion. The abdomen was cleaned and dried and steri strips were placed over each of the incisions. The patient was awakened and taken to the postanesthesia care unit in stable condition. All counts were correct at the end of the procedure. Complications: none Condition: stable Disposition: PACU Plan for aftercare: monitor overnight
--- NOTE | 2018-11-02 17:08 | SUR.PHASEI ---
pt in stable condition, vss. bedside report given to BAKARI Templeton and transferred care of pt to BAKARI Templeton at this time.
--- NOTE | 2018-11-02 17:16 | SUR.PHASEI ---
Sleeping, arouses easily to voice, very drowsy. Denies pain/nausea. Ice pack to abdomen.
--- NOTE | 2018-11-02 17:41 | SUR.PHASEI ---
report called to floor. Patient denies pain/nausea, dressings CDI, no complaints.
--- NOTE | 2018-11-02 17:46 | SUR.PHASEI ---
1744 to by PACU staff; they will chart him out of PACU. Stable, comfortable.
[2018-11-02] MEDS: SODIUM CHLORIDE 0.9% 1,000 ML 100 ML IV ×2 (17:55→22:00)
--- NOTE | 2018-11-02 17:56 | SUR.PHASEI ---
Pt taken to floor. Abd checked with BAKARI Voss. VS stable. IV saline locked.
[2018-11-02] MEDS: OXYCODONE/ACETAMINOPHEN 5/325 TABLET 1 TAB PO (21:11)
[2018-11-02] MEDS: ACETAMINOPHEN 325 MG TABLET 650 MG PO (21:12)
[2018-11-03 01:00] VITALS: BP 124/96; PULSE 85; RESP 16; TEMP 36.9; O2SAT 95
[2018-11-03 03:22] VITALS: BP 111/76; PULSE 74; RESP 16; TEMP 36.7; O2SAT 93
[2018-11-03] MEDS: OXYCODONE/ACETAMINOPHEN 5/325 TABLET 1 TAB PO (07:33)
[2018-11-03] MEDS: ACETAMINOPHEN 325 MG TABLET 650 MG PO (07:33)
[2018-11-03 07:58] VITALS: BP 104/64; PULSE 94; RESP 18; TEMP 36.7; O2SAT 93
--- NOTE | 2018-11-03 09:55 | PM.DS.1 ---
History of Present Illness Chief complaint: stomach pain Narrative: 48yo M with progressing RUQ/ ALTA pain since yesterday evening. [place]. He has never had similar episodes but has occasionally had mild RUQ pain after eating. US shows gallstones and wall thickening, normal LFTs, mild leukocytosis to 15. No active medical issues, only abd surgery was a lap possibly Vega for GERD. Discharge Providers Date of admission: 11/02/18 12:32 Discharge Date: 11/03/18 Discharge provider: Vidhya Holden MD Summary Discharge Diagnosis: Cholecystitis Hospital Course: 48yo M admitted with one day of ongoing RUQ/ ALTA pain and found to have cholecystitis. Underwent lap kaylee, tolerated well, discharged next day guy diet and pain controlled. Status at Discharge Cognitive/behavioral status at discharge: at baseline, oriented Functional status at discharge: independent ambulation Overall status at discharge: patient is progressing back to baseline Time Spent with Patient Less than 30 minutes Exam Vital Signs (past 8 hours): - 11/03/18 03:22 11/03/18 07:58 Temperature 98.1 F 98.1 F Pulse Rate 74 94 H Respiratory Rate 16 18 Blood Pressure 111/76 104/64 Pulse Oximetry 93 93 Oxygen Delivery Method Room Air Oxygen Flow Rate 0 Narrative Exam Narrative: AAO, NAD, overweight male EOMI, MMM, no scleral icterus unlabored RA soft, nt/nd, inc c/d/i MAEW visible skin dry and intact Objective Labs Result Diagrams: 11/02/18 10:41 11/02/18 10:41 Labs: Laboratory Results - last 24 hr 11/02/18 11/02/18 10:41 10:41 WBC 15.9 H RBC 4.69 Hgb 15.1 Hct 42.5 MCV 90.7 MCH 32.1 MCHC 35.4 RDW 12.9 Plt Count 184 Neut % (Auto) 90.6 H Lymph % (Auto) 2.7 L [place] % (Auto) 6.5 Eos % (Auto) 0.0 L Baso % (Auto) 0.2 Neut # (Auto) 62031 H Lymph # (Auto) 400 L [place] # (Auto) 1000 H Eos # (Auto) 0 Baso # (Auto) 0 Sodium 140 Potassium 4.0 Chloride 102 Carbon Dioxide 25 BUN 16 Creatinine 0.70 Estimated GFR > 60.0 BUN/Creatinine Ratio 22.9 H Glucose 145 H Calcium 9.5 Total Bilirubin 1.0 AST 31 ALT 33 Alkaline Phosphatase 63 Total Creatine Kinase 178 H CK-MB (CK-2) 1.03 CK-MB (CK-2) Rel Index 0.6 L Troponin I < 0.012 Total Protein 8.0 Albumin 4.8 Globulin 3.2 Albumin/Globulin Ratio 1.5 Lipase 42 Discharge Plan Discharge Plan Patient Disposition: Home Discharge Med Rec/Prescriptions Prescriptions: New oxycodone-acetaminophen 5-325 mg Tablet 1 tab PO Q4HR PRN (Reason: Pain, Moderate (4-6)) Qty: 30 RF: 0 docusate sodium [DOK] 100 mg Capsule 100 mg PO BID PRN (Reason: Constipation) Qty: 60 RF: 0 ibuprofen 800 mg tablet 800 mg PO TID Qty: 60 RF: 0 Follow up/Referrals: Vidhya Holden MD [Physician] - Provider Discharge Instructions Diet: Diet as Tolerated Activity: no lifting > 20 lbs x4 weeks Cold/Heat Therapy: prn Visit Report/Discharge Packet Instructions: DI for Cholecystectomy, DI for Laparoscopy, [facility]: Wound Care Discharge Data Attending Provider: Vidhya Holden Admit Date/Time: 11/02/18 12:32
--- NOTE | 2018-11-03 10:07 | P.DS_ITS ---
History of Present Illness Chief complaint: stomach pain Narrative: 48yo M with progressing RUQ/ ALTA pain since yesterday evening. [place]. He has never had similar episodes but has occasionally had mild RUQ pain after eating. US shows gallstones and wall thickening, normal LFTs, mild leukocytosis to 15. No active medical issues, only abd surgery was a lap possibly Vega for GERD. Discharge Providers Date of admission: 11/02/18 12:32 Discharge Date: 11/03/18 Discharge provider: Vidhya Holden MD Summary Discharge Diagnosis: Cholecystitis Hospital Course: 48yo M admitted with one day of ongoing RUQ/ ALTA pain and found to have cholecystitis. Underwent lap kaylee, tolerated well, discharged next day guy diet and pain controlled. Status at Discharge Cognitive/behavioral status at discharge: at baseline, oriented Functional status at discharge: independent ambulation Overall status at discharge: patient is progressing back to baseline Time Spent with Patient Less than 30 minutes Exam Vital Signs (past 8 hours): - 11/03/18 03:22 11/03/18 07:58 Temperature 98.1 F 98.1 F Pulse Rate 74 94 H Respiratory Rate 16 18 Blood Pressure 111/76 104/64 Pulse Oximetry 93 93 Oxygen Delivery Method Room Air Oxygen Flow Rate 0 Narrative Exam Narrative: AAO, NAD, overweight male EOMI, MMM, no scleral icterus unlabored RA soft, nt/nd, inc c/d/i MAEW visible skin dry and intact Objective Labs Result Diagrams: 11/02/18 10:41 11/02/18 10:41 Labs: Laboratory Results - last 24 hr 11/02/18 11/02/18 10:41 10:41 WBC 15.9 H RBC 4.69 Hgb 15.1 Hct 42.5 MCV 90.7 MCH 32.1 MCHC 35.4 RDW 12.9 Plt Count 184 Neut % (Auto) 90.6 H Lymph % (Auto) 2.7 L [place] % (Auto) 6.5 Eos % (Auto) 0.0 L Baso % (Auto) 0.2 Neut # (Auto) 98813 H Lymph # (Auto) 400 L [place] # (Auto) 1000 H Eos # (Auto) 0 Baso # (Auto) 0 Sodium 140 Potassium 4.0 Chloride 102 Carbon Dioxide 25 BUN 16 Creatinine 0.70 Estimated GFR > 60.0 BUN/Creatinine Ratio 22.9 H Glucose 145 H Calcium 9.5 Total Bilirubin 1.0 AST 31 ALT 33 Alkaline Phosphatase 63 Total Creatine Kinase 178 H CK-MB (CK-2) 1.03 CK-MB (CK-2) Rel Index 0.6 L Troponin I < 0.012 Total Protein 8.0 Albumin 4.8 Globulin 3.2 Albumin/Globulin Ratio 1.5 Lipase 42 Discharge Plan Discharge Plan Patient Disposition: Home Discharge Med Rec/Prescriptions Prescriptions: New oxycodone-acetaminophen 5-325 mg Tablet 1 tab PO Q4HR PRN (Reason: Pain, Moderate (4-6)) Qty: 30 RF: 0 docusate sodium [DOK] 100 mg Capsule 100 mg PO BID PRN (Reason: Constipation) Qty: 60 RF: 0 ibuprofen 800 mg tablet 800 mg PO TID Qty: 60 RF: 0 Follow up/Referrals: Vidhya Holden MD [Physician] - Provider Discharge Instructions Diet: Diet as Tolerated Activity: no lifting > 20 lbs x4 weeks Cold/Heat Therapy: prn Visit Report/Discharge Packet Instructions: DI for Cholecystectomy, DI for Laparoscopy, [facility]: Wound Care Discharge Data Attending Provider: Vidhya Holden Admit Date/Time: 11/02/18 12:32
--- NOTE | 2018-11-03 13:23 | CM.DANOTE ---
Discharge Planning/Care Management DCP: assessment: initiated: case received this morning and discussed in Team Rounds. Pt is a 48 year old male who admitted yesterday afternoon to care of Surgeon Dr. Holden with abdominal pain. He was taken to surgery yesterday for a lap kaylee and this morning Dr. Holden saw his and cleared him for d/c to home. Payer: [facility]. Went to room to check in with pt but he had already left for home with his partner Hilda/confirmed same with BAKARI Alonso. No d/c concerns were expressed by the care team members. CM Discharge Assessment Start: 11/03/18 13:22 Freq: Status: Active Protocol: Document 11/03/18 13:23 ITV (Rec: 11/03/18 13:23 ITV [id number]) Discharge Planning Assessment Advance Directives? No Advance Directives on File No History Provided By Medical Record Prior Living Arrangements House Household Members significant other family Review Status In Process
== END 2018-11-03 10:31 | disposition home or self-care (01) ==
LOC: ED 12:17 → AC 12:33
PROVIDERS: Admitting Provider Surgery; Emergency Provider Emergency Medicine; Visit Provider Surgery
PROC: 0FT44ZZ Resection of Gallbladder, Percutaneous Endoscopic Approach (ICD-10-PCS; CPT 47562; principal; 2018-11-02 15:30)
DX: K80.10 Calculus of gallbladder with chronic cholecystitis without obstruction (principal); K82.A2 Perforation of gallbladder in cholecystitis; R00.0 Tachycardia, unspecified
CPT/HCPCS: 47562; 36591; 51798; 74022; 76700; 80053; 82550; 82553; 83690; 84484; 85025; 93005; 93010; 96361; 96365; 96375; 99283; 99285; G0378; C9113; J0131; J1100; J1885; J2250; J2270; J2405; J2543; J3010

== ENCOUNTER 2024-04-27 09:40 | Day surgery (SDC) | payer OTHER, SELFPAY ==
[2018-11-02 14:15] VITALS: BMI 28.8
--- NOTE | 2024-04-27 | PATH_ITS ---
[facility] Accession Number: [id number] No. of containers..02 Tissue . 01 Material submitted: . PART A: colon - ASCENDING COLON POLYP PART B: colon - SIGMOID POLYP . 01 Diagnosis: A. ASCENDING COLON POLYP: Tubular adenoma. . B. SIGMOID COLON POLYP: Hyperplastic polyp. [facility] 04/29/2024 1200 Local . 01 Electronically signed: . Joey Bolton MD, PhD, Pathologist NPI- [id number] . 01 Gross description: . A. Received in formalin with two patient identifiers and ascending colon polyp, are two horner soft tissue fragments, 0.3 to 0.4 cm in greatest dimension, submitted in A1. B. Received in formalin with two patient identifiers and sigmoid polyp, are two horner soft tissue fragments, 0.3 to 0.7 cm in greatest dimension, submitted in B1. ([id number]) /MRV 04/28/2024 1843 Local . 01 Pathologist provided ICD-10: D12.2 . 01 CPT . 815980, [id number] Specimen Comment: A courtesy copy of this report has been sent to [phone] Performed at: [address] [facility] [address], [place], [place] [id number] MD Garrick Castellanos MD Phone: [phone]
[2024-04-27 10:15] VITALS: BP 135/90; PULSE 84; RESP 12; TEMP 36.9; O2SAT 96
--- NOTE | 2024-04-27 10:40 | PM.HP.1 ---
History of Present Illness History of Present Illness Date Patient Seen: 04/27/24 Time Patient Seen: 10:40 Chief complaint: Colonoscopy Narrative: 53-year-old man here for 1st time screening colonoscopy. No family history of colon cancer. No abdominal concerns today. [facility] Surgical History History of Vega fundoplication Social History household members: significant other and family Smoking Status: Never smoker alcohol intake: current substance use type: does not use Meds Home Medications and Allergies Home Medications Medication Instructions Recorded Confirmed Type ibuprofen 800 mg tablet 800 mg PO TID #60 tabs 11/03/18 11/18/18 Rx sodium,potassium,mag sulfates 17.5 See Rx Instructions PO .COMPLEX 04/19/24 Rx gram-3.13 gram-1.6 gram oral soln #354 mL (Suprep Bowel Prep Kit) Allergies Allergy/AdvReac Type Severity Reaction Status Date / Time No Known Drug Allergies Allergy Verified 04/27/24 10:14 Exam Vital Signs (past 8 hours): - 04/27/24 10:15 Temperature 98.4 F Pulse Rate 84 Respiratory Rate 12 Blood Pressure 135/90 Pulse Oximetry 96 Oxygen Delivery Method Room Air Oxygen Delivery Method Room Air Narrative Exam Narrative: General adult man alert oriented no acute distress Chest nonlabored respiration Extremities warm well perfused Assessment & Plan Assessment & Plan narrative: The patient requires colorectal screening and colonoscopy is recommended. Technical details were discussed. Risks, benefits, alternatives explained. Risks including but not limited to myocardial infarction, aspiration, bleeding, pain, missed lesion, incomplete examination, need for further radiographic studies, intestinal injury, and need for major abdominal surgery were discussed. All questions were answered to their satisfaction, and they are in agreement with this plan. Time-Based Coding :: [TOTAL MINUTES] spent with patient and on the chart (including review of chart, obtaining history, exam, reviewing outside data, placing orders, documenting exam and treatment plan, and counseling patient) on [DATE].
--- NOTE | 2024-04-27 10:41 | P.OP.COLON_ITS ---
Operative Date/Time/Diagnoses Date of procedure: 04/27/24 Time of procedure: 10:41 Pre-op diagnosis: Colorectal screening Procedure & Clinicians Study performed: Screening colonoscopy Same procedure as scheduled: Yes Indications: Screening Surgeon: Aydin Lewis Procedure Notes Procedure in detail: The history and physical was performed/updated and the patient is ASA class is 2. The procedure was discussed in detail with the patient. Potential risks complications including infection, bleeding, missed diagnosis, perforation, need for surgery, and were explained. Their questions were answered and informed consent was obtained. Patient was brought to the procedure room and placed standard monitoring equipment. The patient's vital signs were monitored continuously throughout the entire procedure. Prior to starting time-out was performed. The patient was placed in the left lateral recumbent position. Procedural sedation was administered by anesthesia. Examination began with a thorough inspection of the perianal area there was no evidence of fissures, fistulae, external hemorrhoids or cutaneous malignancy. The colonoscopy scope was then placed into the anal canal and was advanced to the cecum, which was identified by the ileocecal valve, the appendiceal orifice and the confluence of the taenia. The scope was then slowly withdrawn examining colon thoroughly in all directions, irrigating it of any residual stool. The scope was retroflexed within the rectum The patient tolerated the procedure well. They will be discharged once criteria are met. The prep was of fair quality. The withdrawl time was 10 minutes. FINDINGS * Ascending colon polyp 5 mm removed with cold snare * Rectal polyp 3 mm removed with biopsy forceps likely hyperplastic * Diverticulosis of distal colon Findings: divertiulosis Specimen(s): other (Ascending and rectal polyps) Impression: Colonic polyps x2 Post-procedure Recommendations: High fiber diet Plan for aftercare: Follow up dependent on pathology findings likely 5 years. Disposition: same day surgery
[2024-04-27 11:13] VITALS: BP 96/74; PULSE 88; RESP 19; TEMP 36.2; O2SAT 95
[2024-04-27 11:18] VITALS: BP 107/81; PULSE 74; RESP 18; O2SAT 95
[2024-04-27 11:23] VITALS: BP 110/85; PULSE 68; RESP 18; O2SAT 91
[2024-04-27 11:30] VITALS: BP 106/74; PULSE 76; RESP 15; TEMP 36.2; O2SAT 94
[2024-04-27 11:35] VITALS: BP 117/87; PULSE 75; RESP 16; O2SAT 96
== END 2024-04-27 11:55 | disposition home or self-care (01) ==
PROVIDERS: PCP Family Medicine; Referring Provider Surgery; Visit Provider Surgery
PROC: 0DJD8ZZ Inspection of Lower Intestinal Tract, Via Natural or Artificial Opening Endoscopic (ICD-10-PCS; CPT 45378; principal; 2024-04-27 10:45)
DX: Z12.11 Encounter for screening for malignant neoplasm of colon (principal); K57.30 Diverticulosis of large intestine without perforation or abscess without bleeding; D12.2 Benign neoplasm of ascending colon; K63.5 Polyp of colon
CPT/HCPCS: 45385; 45380; J2704